=== PATIENT | female | born 1980 | race Caucasian/White ===

== ENCOUNTER 2021-05-14 13:03 | Inpatient (IN) | payer MEDICARE ==
[~2021-05-14] VITALS: Ht 162.6 cm; Wt 97.5 kg
[2021-05-14 14:48] LABS: BASOPHILS % (AUTO) 0.7 % (0.0-2.0); EOSINOPHILS % (AUTO) 3.1 % (1.0-6.0); HEMATOCRIT 33.7 % (36-46); HEMOGLOBIN 10.9 g/dL (12.0-16.0); LYMPHOCYTES # (AUTO) 1.5 K/uL (1.0-4.8); LYMPHOCYTES % (AUTO) 16.3 % (22.0-44.0); MEAN CORPUSCULAR HGB CONC 32.5 G/dL (31.0-37.0); MEAN CORPUSCULAR VOLUME 86 fL (80-100); MONOCYTES # (AUTO) 0.4 K/uL (0.1-1.0); MONOCYTES % (AUTO) 4.7 % (2.0-9.0); NEUTROPHILS # (AUTO) 6.7 K/uL (1.8-7.7); NEUTROPHILS % (AUTO) 75.2 % (40.0-70.0); PLATELET COUNT (AUTO) 272 K/uL (150-450); RED BLOOD CELL COUNT(AUTO) 3.91 MIL/uL (4.00-5.20); RED CELL DISTRIBUTION WIDTH 14.1 % (11.5-14.5)
[2021-05-14 15:03] LABS: ACETONE,BLOOD NEGATIVE (NEGATIVE)
[2021-05-14 15:04] LABS: ALANINE AMINOTRANSFERASE 26 U/L (12-78); ALBUMIN 3.4 g/dL (3.4-5.0); ALKALINE PHOSPHATASE 73 U/L (46-116); ANION GAP 14 mmol/L (8-16); ASPARTATE AMINOTRANSFERASE 14 U/L (15-37); BILIRUBIN,TOTAL 0.2 mg/dL (0.1-1.0); CALCIUM, TOTAL 8.7 mg/dL (8.8-10.5); CARBON DIOXIDE 22 mmol/L (22-29); CHLORIDE 96 mmol/L (98-107); CREATININE 1.04 mg/dL (0.60-1.30); GLOMERULAR FILTR. RATE CALC 58 mL/min (>60); POTASSIUM 4.5 mmol/L (3.5-5.1); SODIUM SERUM 132 mmol/L (136-145); TOTAL PROTEIN, SERUM 7.2 g/dL (6.4-8.2); UREA NITROGEN, BLOOD 9 mg/dL (7-18)
[2021-05-14 15:07] LABS: GLUCOSE,RANDOM 520 mg/dL (70-110)
[2021-05-14] MEDS ORDERED: SODIUM CHLORIDE 0.9% 1,000 ML IV ONE (16:15)
[2021-05-14] MEDS ORDERED: INSULIN REGULAR, HUMAN 100 UNITS/ML IVP ONE (16:15)
[2021-05-14 16:24] LABS: GLUCOMETER DEV NAME(LOC) ERT.5; GLUCOSE,POINT OF CARE 404 MG/DL (70-110)
[2021-05-14 17:13] LABS: AMPHET/METH SCREEN,URINE NEGATIVE (NEGATIVE); BARBITURATE SCREEN, URINE NEGATIVE (NEGATIVE); BENZODIAZEPINES SCREEN,URINE POSITIVE (NEGATIVE); CANNABINOID SCREEN,URINE POSITIVE (NEGATIVE); COCAINE SCREEN,URINE NEGATIVE (NEGATIVE); METHADONE SCREEN, URINE NEGATIVE (NEGATIVE); OPIATE SCREEN,URINE POSITIVE (NEGATIVE)
[2021-05-14 17:15] LABS: PHENCYCLIDINE SCREEN,URINE NEGATIVE (NEGATIVE)
[2021-05-14 17:23] LABS: GLUCOMETER DEV NAME(LOC) ERT.5; GLUCOSE,POINT OF CARE 366 MG/DL (70-110)
[2021-05-14] MEDS ORDERED: LITH300CRT PO (17:49)
[2021-05-14] MEDS ORDERED: QUET100T PO (17:51)
[2021-05-14] MEDS ORDERED: LURA20TA PO (17:51)
[2021-05-14 18:25] LABS: LITHIUM 0.38 mmol/L (0.60-1.20)
[2021-05-14] MEDS: LORazepam 2 MG TABLET PO PRN (18:37)
[2021-05-14 18:42] LABS: COVID AG,FIA SOURCE NASAL SWAB
[2021-05-14 19:22] LABS: GLUCOMETER DEV NAME(LOC) ERT.5; GLUCOSE,POINT OF CARE 282 MG/DL (70-110)
[2021-05-14 21:00] VITALS: BP 148/104
[2021-05-14] MEDS: HALOPERIDOL 5 MG TABLET PO PRN (21:33)
[2021-05-14] MEDS: ZOLPIDEM TARTRATE 10 MG TABLET PO PRN (21:33)
[2021-05-14] MEDS ORDERED: ONDANSETRON HCL 4 MG TABLET PO PRN (22:00)
[2021-05-14] MEDS ORDERED: GLUCAGON,HUMAN RECOMBINANT 1 MG VIAL IM PRN (22:30)
[2021-05-14 23:24] VITALS: BP 167/93
[2021-05-15] VITALS (12 sets, daily range): BP systolic 115–179; BP diastolic 68–99
[2021-05-15] MEDS ORDERED: PNEUMOCOCCAL VACCINE POLYVALENT 0.5 ML VIAL [PPSV23] IM. ONE (00:30)
[2021-05-15] MEDS ORDERED: IBUPROFEN 400 MG TABLET PO PRN (06:30)
[2021-05-15] MEDS: LORazepam 2 MG TABLET PO PRN ×4 (06:31→19:04)
[2021-05-15] MEDS ORDERED: DOCUSATE SODIUM 100 MG CAPSULE PO PRN (08:45)
[2021-05-15] MEDS ORDERED: PETROLATUM,WHITE 28 GM JELLY TP PRN (08:45)
[2021-05-15] MEDS ORDERED: NICOTINE 14 MG/24 HOUR PATCH TD PRN (08:45)
[2021-05-15] MEDS ORDERED: GuaiFENesin/D-METHORPHAN [SUGAR-FREE] 200-20MG/10 ML SYRUP UDCUP PO PRN (08:45)
[2021-05-15] MEDS ORDERED: MAGNESIUM HYDROXIDE SUSPENSION 30 ML UDCUP PO PRN (08:45)
[2021-05-15] MEDS ORDERED: CloNIDine HCL 0.1 MG TABLET PO PRN (08:45)
[2021-05-15] MEDS ORDERED: ALBUTEROL SULFATE HFA 90 MCG/PUFF 8 GM INHALER IH PRN (08:45)
[2021-05-15] MEDS ORDERED: MAG HYDROX/AL HYDROX/SIMETH ES 30 ML SUSPENSION UDCUP PO PRN (08:45)
[2021-05-15] MEDS: HALOPERIDOL 5 MG TABLET PO PRN ×2 (10:57→15:48)
[2021-05-15] MEDS: INSULIN LISPRO 100 UNITS/ML SQ PRN ×3 (11:46→20:52)
[2021-05-15] MEDS: ONDANSETRON HCL 4 MG TABLET PO PRN (11:48)
[2021-05-15 12:18] LABS: GLUCOMETER DEV NAME(LOC) BV3S.; GLUCOSE,POINT OF CARE 252 MG/DL (70-110)
[2021-05-15] MEDS: IBUPROFEN 400 MG TABLET PO PRN ×2 (12:57→20:58)
[2021-05-15] MEDS: LITHIUM CARBONATE 300 MG ER TABLET PO SCH (16:30)
[2021-05-15] MEDS: INSULIN GLARGINE,HUM.REC.ANLOG 100 UNITS/ML SQ SCH (16:37)
[2021-05-15] MEDS: CloNIDine HCL 0.1 MG TABLET PO PRN ×2 (16:40→19:04)
[2021-05-15 17:33] LABS: GLUCOMETER DEV NAME(LOC) BV3S.; GLUCOSE,POINT OF CARE 222 MG/DL (70-110)
[2021-05-15] MEDS: QUEtiapine FUMARATE 100 MG TABLET PO SCH (20:39)
[2021-05-15] MEDS: ZOLPIDEM TARTRATE 10 MG TABLET PO PRN (20:55)
[2021-05-15 21:46] LABS: GLUCOMETER DEV NAME(LOC) BV3S.; GLUCOSE,POINT OF CARE 282 MG/DL (70-110)
[2021-05-16] VITALS (14 sets, daily range): BP systolic 126–151; BP diastolic 74–100
[2021-05-16] MEDS: HydrOXYzine PAMOATE 50 MG CAPSULE PO PRN ×3 (00:19→16:00)
[2021-05-16] MEDS: ACETAMINOPHEN 325 MG TABLET PO PRN ×3 (00:19→22:47)
[2021-05-16] MEDS: HALOPERIDOL 5 MG TABLET PO PRN ×3 (02:43→16:00)
[2021-05-16] MEDS: IBUPROFEN 400 MG TABLET PO PRN ×2 (06:11→18:40)
[2021-05-16 06:21] LABS: GLUCOMETER DEV NAME(LOC) BV3S.; GLUCOSE,POINT OF CARE 268 MG/DL (70-110)
[2021-05-16] MEDS: INSULIN LISPRO 100 UNITS/ML SQ PRN ×4 (07:02→20:58)
[2021-05-16] MEDS: ONDANSETRON HCL 4 MG TABLET PO PRN (07:02)
[2021-05-16] MEDS: LITHIUM CARBONATE 300 MG ER TABLET PO SCH ×2 (08:35→17:25)
[2021-05-16] MEDS: LORazepam 2 MG TABLET PO PRN ×3 (08:37→22:47)
[2021-05-16] MEDS: INSULIN GLARGINE,HUM.REC.ANLOG 100 UNITS/ML SQ SCH ×2 (08:45→17:33)
[2021-05-16 12:17] LABS: GLUCOMETER DEV NAME(LOC) BV3S.; GLUCOSE,POINT OF CARE 328 MG/DL (70-110)
[2021-05-16] MEDS: BACLOFEN 10 MG TABLET PO PRN (13:02)
[2021-05-16] MEDS: CloNIDine HCL 0.1 MG TABLET PO PRN (13:04)
[2021-05-16 16:43] LABS: GLUCOMETER DEV NAME(LOC) BV3S.; GLUCOSE,POINT OF CARE 343 MG/DL (70-110)
[2021-05-16] MEDS: LOPERAMIDE HCL 2 MG CAPSULE PO PRN (18:25)
[2021-05-16] MEDS: QUEtiapine FUMARATE 100 MG TABLET PO SCH (20:29)
[2021-05-16] MEDS: ZOLPIDEM TARTRATE 10 MG TABLET PO PRN (20:30)
[2021-05-16 21:10] LABS: GLUCOMETER DEV NAME(LOC) BV3S.; GLUCOSE,POINT OF CARE 360 MG/DL (70-110)
[2021-05-17] VITALS (7 sets, daily range): BP systolic 126–137; BP diastolic 64–87
[2021-05-17] MEDS: BACLOFEN 10 MG TABLET PO PRN ×2 (02:06→13:24)
[2021-05-17] MEDS: HydrOXYzine PAMOATE 50 MG CAPSULE PO PRN (02:06)
[2021-05-17] MEDS: LORazepam 2 MG TABLET PO PRN ×3 (03:38→15:43)
[2021-05-17] MEDS: IBUPROFEN 400 MG TABLET PO PRN ×2 (03:38→18:08)
[2021-05-17] MEDS: INSULIN LISPRO 100 UNITS/ML SQ PRN ×3 (06:51→20:11)
[2021-05-17 06:53] LABS: GLUCOMETER DEV NAME(LOC) BV3S.; GLUCOSE,POINT OF CARE 313 MG/DL (70-110)
[2021-05-17] MEDS: LITHIUM CARBONATE 300 MG ER TABLET PO SCH ×2 (08:24→16:18)
[2021-05-17] MEDS: INSULIN GLARGINE,HUM.REC.ANLOG 100 UNITS/ML SQ SCH ×2 (08:38→18:12)
[2021-05-17] MEDS: HALOPERIDOL 5 MG TABLET PO PRN ×2 (10:18→15:42)
[2021-05-17] MEDS: CloNIDine HCL 0.1 MG TABLET PO PRN (10:49)
[2021-05-17] MEDS: LOPERAMIDE HCL 2 MG CAPSULE PO PRN (10:59)
[2021-05-17 12:05] LABS: GLUCOMETER DEV NAME(LOC) BV3S.; GLUCOSE,POINT OF CARE 383 MG/DL (70-110)
[2021-05-17 12:40] LABS: APPEARANCE,URINE CLEAR (CLEAR); BILIRUBIN,URINE NEGATIVE (NEGATIVE); GLUCOSE, URINE (UA) >=1000 mg/dL (NEGATIVE); KETONES,URINE 15 mg/dL (NEGATIVE); LEUKOCYTE ESTERASE ,URINE NEGATIVE (NEGATIVE); NITRATE,URINE NEGATIVE (NEGATIVE); OCCULT BLOOD,URINE TRACE (NEGATIVE); PROTEIN,URINE TRACE (NEGATIVE); UROBILINOGEN,URINE 0.2 mg/dL (<=1.0)
[2021-05-17 12:51] LABS: BACTERIA,URINE None Seen /HPF (None Seen); RBC,URINE None Seen /HPF (0-2); SQUAMOUS EPITHELIAL CELL,UR None Seen /LPF (None Seen); WBC,URINE None Seen /HPF (0-5)
[2021-05-17] MEDS: TraMADol HCL 50 MG TABLET PO PRN (15:42)
[2021-05-17 17:02] LABS: GLUCOMETER DEV NAME(LOC) BV3S.; GLUCOSE,POINT OF CARE 458 MG/DL (70-110)
[2021-05-17] MEDS ORDERED: INSULIN LISPRO 100 UNITS/ML SQ ONE (18:00)
[2021-05-17] MEDS: QUEtiapine FUMARATE 100 MG TABLET PO SCH (20:07)
[2021-05-17] MEDS: ZOLPIDEM TARTRATE 10 MG TABLET PO PRN (20:07)
[2021-05-17 20:25] LABS: GLUCOMETER DEV NAME(LOC) BV3S.; GLUCOSE,POINT OF CARE 390 MG/DL (70-110)
[2021-05-18 01:05] VITALS: BP 112/78
[2021-05-18] MEDS: TraMADol HCL 50 MG TABLET PO PRN ×3 (01:13→20:12)
[2021-05-18 01:14] VITALS: BP 112/78
[2021-05-18] MEDS: LORazepam 2 MG TABLET PO PRN ×4 (01:44→16:58)
[2021-05-18] MEDS: HydrOXYzine PAMOATE 50 MG CAPSULE PO PRN ×2 (01:44→06:47)
[2021-05-18 04:02] VITALS: BP 140/91
[2021-05-18 06:45] LABS: GLUCOMETER DEV NAME(LOC) BV3S.; GLUCOSE,POINT OF CARE 215 MG/DL (70-110)
[2021-05-18] MEDS: BACLOFEN 10 MG TABLET PO PRN ×2 (06:47→16:07)
[2021-05-18] MEDS: INSULIN LISPRO 100 UNITS/ML SQ PRN ×3 (06:53→20:21)
[2021-05-18 08:05] LABS: HEMOGLOBIN A1C 8.4 % (3.8-5.6)
[2021-05-18 08:06] VITALS: BP 128/74
[2021-05-18] MEDS: LITHIUM CARBONATE 300 MG ER TABLET PO SCH ×2 (08:17→16:06)
[2021-05-18] MEDS: HALOPERIDOL 5 MG TABLET PO PRN ×3 (08:17→16:59)
[2021-05-18 08:20] LABS: LITHIUM 0.83 mmol/L (0.60-1.20)
[2021-05-18] MEDS: INSULIN GLARGINE,HUM.REC.ANLOG 100 UNITS/ML SQ SCH ×2 (08:29→16:57)
[2021-05-18 08:46] LABS: CHOL/HDL RATIO 2.7 (3.9-5.7); FREE T4 (FREE THYROXINE) 1.09 ng/dL (0.76-1.46); THYROID STIMULATING HORMONE 4.73 uIU/mL (0.36-3.74)
[2021-05-18 16:02] VITALS: BP 135/82
[2021-05-18 17:08] LABS: GLUCOMETER DEV NAME(LOC) BV3S.; GLUCOSE,POINT OF CARE 376 MG/DL (70-110)
[2021-05-18] MEDS: QUEtiapine FUMARATE 100 MG TABLET PO SCH (20:11)
[2021-05-18] MEDS: ZOLPIDEM TARTRATE 10 MG TABLET PO PRN (20:12)
[2021-05-18 20:30] LABS: GLUCOMETER DEV NAME(LOC) BV3S.; GLUCOSE,POINT OF CARE 374 MG/DL (70-110)
[2021-05-18] MEDS: DICYCLOMINE HCL 10 MG CAPSULE PO PRN (22:46)
[2021-05-19 01:40] VITALS: BP 132/79
[2021-05-19] MEDS: LORazepam 2 MG TABLET PO PRN ×4 (01:50→22:52)
[2021-05-19] MEDS: INSULIN LISPRO 100 UNITS/ML SQ PRN ×4 (06:33→21:04)
[2021-05-19 06:35] LABS: GLUCOMETER DEV NAME(LOC) BV3S.; GLUCOSE,POINT OF CARE 314 MG/DL (70-110)
[2021-05-19] MEDS: IBUPROFEN 400 MG TABLET PO PRN ×2 (06:44→14:47)
[2021-05-19] MEDS: INSULIN GLARGINE,HUM.REC.ANLOG 100 UNITS/ML SQ SCH ×2 (09:01→16:30)
[2021-05-19] MEDS: LITHIUM CARBONATE 300 MG ER TABLET PO SCH ×2 (09:01→16:04)
[2021-05-19 09:02] VITALS: BP 151/96
[2021-05-19 09:12] LABS: GLUCOMETER DEV NAME(LOC) BV3S.; GLUCOSE,POINT OF CARE 284 MG/DL (70-110)
[2021-05-19 11:39] LABS: GLUCOMETER DEV NAME(LOC) BV3S.; GLUCOSE,POINT OF CARE 262 MG/DL (70-110)
[2021-05-19] MEDS: BACLOFEN 10 MG TABLET PO PRN ×2 (13:21→18:38)
[2021-05-19] MEDS: TraMADol HCL 50 MG TABLET PO PRN (13:50)
[2021-05-19] MEDS: HydrOXYzine PAMOATE 50 MG CAPSULE PO PRN (14:47)
[2021-05-19 16:04] VITALS: BP 137/89
[2021-05-19] MEDS: HALOPERIDOL 5 MG TABLET PO PRN ×2 (16:04→22:52)
[2021-05-19] MEDS ORDERED: INSULIN LISPRO 100 UNITS/ML SQ ONE (16:30)
[2021-05-19 16:31] LABS: GLUCOMETER DEV NAME(LOC) BV3S.; GLUCOSE,POINT OF CARE 403 MG/DL (70-110)
[2021-05-19] MEDS: QUEtiapine FUMARATE 100 MG TABLET PO SCH (20:13)
[2021-05-19] MEDS: ZOLPIDEM TARTRATE 10 MG TABLET PO PRN (20:13)
[2021-05-19 20:22] LABS: GLUCOMETER DEV NAME(LOC) BV3S.; GLUCOSE,POINT OF CARE 286 MG/DL (70-110)
[2021-05-20 00:53] VITALS: BP 132/87
[2021-05-20] MEDS: HydrOXYzine PAMOATE 50 MG CAPSULE PO PRN (01:49)
[2021-05-20] MEDS: DICYCLOMINE HCL 10 MG CAPSULE PO PRN (01:50)
[2021-05-20 04:52] VITALS: BP 136/92
[2021-05-20] MEDS: IBUPROFEN 400 MG TABLET PO PRN (04:54)
[2021-05-20 09:00] VITALS: BP 138/90
[2021-05-20] MEDS ORDERED: MULTIVITAMINS, THERAPEUTIC TABLET PO SCH (09:00)
[2021-05-20] MEDS ORDERED: QUET100T PO (09:18)
[2021-05-20] MEDS ORDERED: LITH300CRT PO (09:18)
[2021-05-20] MEDS: LITHIUM CARBONATE 300 MG ER TABLET PO SCH (09:36)
[2021-05-20] MEDS: INSULIN GLARGINE,HUM.REC.ANLOG 100 UNITS/ML SQ SCH (09:40)
[2021-05-20 10:03] LABS: GLUCOMETER DEV NAME(LOC) BV3S.; GLUCOSE,POINT OF CARE 354 MG/DL (70-110)
[2021-05-20 12:23] LABS: GLUCOMETER DEV NAME(LOC) BV3S.; GLUCOSE,POINT OF CARE 454 MG/DL (70-110)
== END 2021-05-20 12:39 | disposition home or self-care (01) | DRG 885 ==
LOC: EMS 13:03 → B3A 19:18
DX: F31.4 Bipolar disorder, current episode depressed, severe, without psychotic features (principal); E11.65 Type 2 diabetes mellitus with hyperglycemia; F11.20 Opioid dependence, uncomplicated; E87.1 Hypo-osmolality and hyponatremia; E66.9 Obesity, unspecified; F12.10 Cannabis abuse, uncomplicated; Z79.899 Other long term (current) drug therapy; Z20.822 Contact with and (suspected) exposure to COVID-19
CPT/HCPCS: 80053; 80061; 80178; 81001; 82009; 82962; 83036; 84439; 84443; 85025; 99285; G0480; J1815; J7030; Q0162